=== PATIENT | male | born 1945 | race Caucasian/White ===

== ENCOUNTER 2016-08-29 13:59 | Outpatient (CLI) | payer MEDICARE, BC ==
[2016-08-29 16:16] LABS: #Basophils 0.1 thou/uL (0.0-0.2); #Eosinphils 0.2 thou/uL (0.0-0.7); #Lymphocytes 1.8 thou/uL (1.20-3.40); #Monocytes 0.6 thou/uL (0.11-0.59); #Neutrophils 3.3 thou/uL (1.40-6.50); %Basophils 1.6 % (0.0-1.0); %Eosinophils 2.6 % (0.0-10.0); %Lymphocytes 29.6 % (21.0-51.0); %Monocytes 10.3 % (0.0-10.0); %Neutrophils 55.9 % (42.0-75.0); Hemoglobin 15.9 g/dL (14.0-18.0); Mean Corpuscular HGB CONC 34.4 g/dL (32.0-36.0); Mean Platelet Volume 8.5 fL (7.4-10.4); Platelet Count 208 thou/uL (130-400); RBC Distribution Width 11.7 % (11.5-14.5); Red Blood Cell (RBC) Count 4.83 mill/uL (4.70-6.10); White Blood Cell (WBC) Count 5.9 thou/uL (4.8-10.8)
[2016-08-29 16:34] LABS: Hemoglobin A1c 6.2 % (4.0-6.0)
[2016-08-29 16:39] LABS: ALT (SGPT) 29 U/L (8-55); AST (SGOT) 24 U/L (5-34); Albumin 4.4 g/dL (3.4-4.8); Alkaline Phosphatase 61 U/L (40-150); Anion Gap 15 mmol/L (10-20); Calc. Creatinine Clearance 0 mL/min (70-130); Calcium 9.3 mg/dL (7.8-10.44); Carbon Dioxide 27 mmol/L (23-31); Chloride 102 mmol/L (98-107); Cholesterol 99 mg/dL (< 200 Desired); Estimated GFR-MDRD 70; Globulin 2.3 g/dL (2.4-3.5); Glucose 129 mg/dL (80-115); HDL Cholesterol 33 mg/dL (>60 Neg Risk); LDL Cholesterol, Calculated 32 mg/dL; Potassium 4.4 mmol/L (3.5-5.1); Protein, Total 6.7 g/dL (5.8-8.1); Sodium 140 mmol/L (136-145); Triglycerides 169 mg/dL (Less than 150)
[2016-08-29 16:58] LABS: BUN (Urea Nitrogen) 21 mg/dL (8.4-25.7)
== END 2016-08-29 14:00 ==
LOC: LABLEX 13:59
PROVIDERS: ATTEND Family Medicine
DX: E78.00 Pure hypercholesterolemia, unspecified (principal); E78.1 Pure hyperglyceridemia; I25.10 Atherosclerotic heart disease of native coronary artery without angina pectoris; G47.33 Obstructive sleep apnea (adult) (pediatric); E11.9 Type 2 diabetes mellitus without complications; I10 Essential (primary) hypertension
CPT/HCPCS: 80053; 80061; 83036; 85025

== ENCOUNTER 2021-05-16 11:20 | Outpatient (CLI) | payer MEDICARE, BC | END 2021-05-16 11:21 | disposition home or self-care (01) | LOC: BURRAD 11:20 | PROVIDERS: ATTEND Podiatrist Foot & Ankle Surgery | DX: M77.41 Metatarsalgia, right foot (principal) ==

== ENCOUNTER 2022-02-03 10:37 | Emergency (ER) | payer MEDICARE, BC ==
[2022-02-03] MEDS ORDERED: HyperTET 250 UNITS/ML 1 ML SYRINGE ONE (11:32)
[2022-02-03] MEDS ORDERED: Rabies Vaccine Human 2.5 UNITS VIAL ONE (11:32)
== END 2022-02-03 12:15 | disposition home or self-care (01) ==
LOC: BURERS 10:37
DX: S61.451A Open bite of right hand, initial encounter (principal); I10 Essential (primary) hypertension; E11.9 Type 2 diabetes mellitus without complications; E78.5 Hyperlipidemia, unspecified; I25.10 Atherosclerotic heart disease of native coronary artery without angina pectoris; J44.9 Chronic obstructive pulmonary disease, unspecified; I48.91 Unspecified atrial fibrillation; F17.210 Nicotine dependence, cigarettes, uncomplicated; Z23 Encounter for immunization; W55.51XA Bitten by raccoon, initial encounter
CPT/HCPCS: 90375; 90675; 99283; J1670

== ENCOUNTER → 2022-02-06 | Day surgery (SDC) | payer MEDICARE, BC ==
[~2022-02-06] MED LIST: Rabies Vaccine Human 2.5 UNITS VIAL IM ONE
== END | disposition home or self-care (01) ==
LOC: BUR/OP 10:43
PROVIDERS: ATTEND Emergency Medicine
DX: Z23 Encounter for immunization (principal); W55.51XA Bitten by raccoon, initial encounter
CPT/HCPCS: 90471; 90675

== ENCOUNTER → 2022-02-10 | Day surgery (SDC) | payer MEDICARE, BC ==
[2022-02-10 13:05] VITALS: BP 107/65; TEMP 98.7
[2022-02-10 13:06] VITALS: BMI 19.3
== END | disposition home or self-care (01) ==
LOC: BUR/OP 12:04
PROVIDERS: ATTEND Emergency Medicine
DX: Z23 Encounter for immunization (principal); W55.51XA Bitten by raccoon, initial encounter
CPT/HCPCS: 90375; 90471; 90675

== ENCOUNTER 2022-02-17 10:32 | Day surgery (SDC) | payer MEDICARE, BC ==
[2022-02-17] MEDS ORDERED: Rabies Vaccine Human 2.5 UNITS VIAL ONE (10:42)
== END 2022-02-17 12:00 | disposition home or self-care (01) ==
LOC: BUR/OP 10:32
PROVIDERS: ATTEND Emergency Medicine
DX: Z23 Encounter for immunization (principal); W55.51XA Bitten by raccoon, initial encounter
CPT/HCPCS: 90471; 90675